=== PATIENT | female | born 2000 | race Two or more races ===

== ENCOUNTER → 2021-04-24 | Emergency (ER) | payer OTHER ==
[~2021-04-24] VITALS: Ht 160 cm; Wt 73.0 kg
[~2021-04-24] MED LIST: PRENA1 CHEW TA1.4 MG
== END | disposition home or self-care (01) ==
LOC: ER 21:20
DX: R10.9 Unspecified abdominal pain (principal)

== ENCOUNTER 2021-09-21 04:41 | Inpatient (IN) | payer OTHER ==
[~2021-09-21] VITALS: Ht 160 cm; Wt 3.6 kg
[2021-09-22] MEDS ORDERED: PEPCID AC20 MG (08:20)
[2021-09-24] MEDS ORDERED: SENOKOT8.6 M1 PO (06:35)
[2021-09-24] MEDS ORDERED: IBUPROFEN800 MG PO (06:35)
[2021-09-24] MEDS ORDERED: SIMETHICONE125 M1 PO (06:35)
== END 2021-09-24 13:13 | disposition home or self-care (01) | DRG 788 ==
LOC: SURG-SUITE 04:41 → LDR 04:41 → SURG-SUITE 08:31 → OB/GYN 09-22 11:47 → SURG-SUITE 09-24 13:13
PROVIDERS: ADMIT Obstetrics & Gynecology; ATTEND Obstetrics & Gynecology
PROC: 4A1HXCZ Monitoring of Products of Conception, Cardiac Rate, External Approach (ICD-10-PCS; 2021-09-21)
PROC: 10D00Z1 Extraction of Products of Conception, Low, Open Approach (ICD-10-PCS; principal; 2021-09-21 14:00)
DX: O62.1 Secondary uterine inertia (principal); Z3A.40 40 weeks gestation of pregnancy; Z37.0 Single live birth; Z20.822 Contact with and (suspected) exposure to COVID-19